=== PATIENT | male | born 1960 | race Caucasian/White ===

== ENCOUNTER 2021-05-26 04:20 | Observation (INO) ==
[2021-05-26 05:29] LABS: Basophils # 0.1 K/mcL (0.0-0.2); Basophils % 0.5 %; Eosinophils # 0.2 K/mcL (0.0-0.6); Eosinophils % 1.8 %; Hematocrit 40.5 % (37.5-50.1); Hemoglobin 13.7 g/dL (12.9-16.9); Immature Granulocytes % 0.4 % (0-4); Lymphocytes # 2.1 K/mcL (0.6-4.6); Lymphocytes % 21.3 %; Mean Corpuscular HGB Conc 33.8 g/dL (31.6-35.5); Mean Corpuscular Hemoglobin 29.4 pg (28.0-33.3); Mean Corpuscular Volume 86.9 fL (83.0-100.0); Mean Platelet Volume 10.1 fL (9.4-12.4); Monocytes # 0.8 K/mcL (0.0-1.3); Monocytes % 8.5 %; Neutrophils # 6.6 K/mcL (1.6-8.9); Platelet Count 190 K/mcL (140-400); Red Blood Count 4.66 M/mcL (4.19-5.50); Red Cell Distribution Width 12.2 % (11.5-14.5); Segmented Neutrophils % 67.5 %; White Blood Count 9.8 K/mcL (4.3-11.1)
[2021-05-26 05:35] LABS: VBG HCO3 26 mEq/L (21-27); VBG PCO2 43 mmHg (41-51); VBG PH 7.39 pH Units (7.32-7.42); VBG PO2 114 mmHg (25-50)
[2021-05-26 05:45] LABS: Bilirubin,Urine Negative (Negative); Blood,Urine Negative (Negative); Clarity,Urine Clear (Clear); Color,Urine Colorless (Yellow); Glucose,Urine (UA) Normal (Normal); Ketones,Urine Negative (Negative); Leukocyte Esterase,Urine Negative (Negative); Nitrite,Urine Negative (Negative); Protein,Urine 50 mg/dL (Neg-Trace); RBC,Urine 0-3 per hpf (0-3); Specific Gravity,Urine 1.015 (1.010-1.025); Squamous Epithelial Cell,Urine Few per hpf (None-Few); Urobilinogen,Urine Normal (Normal); WBC,Urine 0-3 per hpf (0-3)
[2021-05-26 05:47] LABS: BUN/Creatinine Ratio 22 (6-26); Blood Urea Nitrogen 27 mg/dL (8-23); Carbon Dioxide 24 mEq/L (23-29); Chloride 99 mEq/L (98-107); Potassium 3.9 mEq/L (3.5-5.1); Sodium 136 mEq/L (136-145); eGFR For African Americans > 60 (> 60)
[2021-05-26 05:48] LABS: Alanine Aminotransferase 36 Units/L (7-52); Albumin 4.4 g/dL (3.5-5.7); Albumin/Globulin Ratio 1.6 (1.1-2.2); Alkaline Phosphatase 46 Units/L (34-104); Aspartate Amino Transferase 24 Units/L (13-39); Bilirubin,Direct 0.1 mg/dL (0.0-0.2); Bilirubin,Indirect 0.5 mg/dL (0.0-1.0); Bilirubin,Total 0.6 mg/dL (0.3-1.0); Calcium 9.5 mg/dL (8.6-10.3); Ethanol < 10 mg/dL (Less than 10); Globulin 2.7 g/dL (2.4-3.5); Glucose 188 mg/dL (70-105); Magnesium 1.4 mg/dL (1.6-2.6); Osmolality,Calculated 292 (280-300); Total Protein 7.1 g/dL (6.4-8.9); eGFR For Non-African Americans 60 (> 60)
[2021-05-26 06:11] LABS: Amphetamine Screen,Urine Negative ng/mL (Cutoff=1000); Barbiturate Screen,Urine Negative ng/mL (Cutoff=200); Benzodiazepines Screen,Urine Negative ng/mL (Cutoff=200); Cannabinoid Screen,Urine Negative ng/mL (Cutoff = 50); Cocaine Screen,Urine Negative ng/mL (Cutoff= 300); Opiate Screen,Urine Positive ng/mL (Cutoff=300); Phencyclidine Screen,Urine Negative ng/mL (Cutoff=25)
[2021-05-26] MEDS ORDERED: Magnesium Sulfate 1 GM/102 ML PIGGYBACK IVPB ONE (06:21)
[2021-05-26 06:35] LABS: Thyroid Stimulating Hormone 3.307 mcIU/mL (0.340-5.600)
[2021-05-26 07:17] LABS: Troponin I 0.03 ng/mL (< 0.04)
[2021-05-26] MEDS ORDERED: Ondansetron ODT 4 MG TAB.RAPDIS SL PRN (07:59)
[2021-05-26] MEDS ORDERED: Naloxone 0.4 MG/ML INJ IVP PRN (07:59)
[2021-05-26] MEDS ORDERED: *HR* HYDROcodone/Acet 5/325 mg TABLET PO PRN (07:59)
[2021-05-26] MEDS ORDERED: Perflutren Lipid Microsphere 1.3 ML in 0.9 % Sodium Chloride 8.7 ML IVP PRN (08:00)
[2021-05-26] MEDS ORDERED: Dextrose 4 GM Chewable Tablets PO PRN ×2 (08:01)
[2021-05-26] MEDS ORDERED: *HR* Dextrose 50 % in Water (Syg) 50 ML SYRINGE IVP PRN (08:01)
[2021-05-26] MEDS ORDERED: D5% in Water 1,000 ML IVC PRN (08:01)
[2021-05-26 09:52] LABS: Prothrombin Time 11.5 Seconds (9.4-12.1)
[2021-05-26 09:54] LABS: Activated Partial Thrombo Time 28.8 Seconds (26.0-36.0)
[2021-05-26] MEDS: Apixaban 5 MG TABLET PO SCH ×2 (09:56→21:13)
[2021-05-26] MEDS: Magnesium Oxide 400 MG TABLET PO SCH ×2 (09:56→21:12)
[2021-05-26] MEDS: Insulin LISPRO 300 UNITS/3 ML VIAL SUBQ SCH ×3 (11:48→17:51)
[2021-05-26] MEDS: Metoprolol 100 MG TABLET PO SCH (21:13)
[2021-05-27 03:10] VITALS: O2SAT 95
[2021-05-27] MEDS: Magnesium Oxide 400 MG TABLET PO SCH (08:55)
[2021-05-27] MEDS: Metoprolol 100 MG TABLET PO SCH (08:55)
[2021-05-27] MEDS: Apixaban 5 MG TABLET PO SCH (08:55)
[2021-05-27] MEDS: Insulin LISPRO 300 UNITS/3 ML VIAL SUBQ SCH (08:56)
[2021-05-27] MEDS ORDERED: Finasteride 5 MG TABLET PO SCH (09:00)
[2021-05-27] MEDS ORDERED: Cholecalciferol (D-3) 1,000 UNIT (25MCG) TABLET PO SCH (09:00)
[2021-05-27] MEDS ORDERED: hydroCHLOROthiazide 25 MG TABLET PO SCH (09:00)
[2021-05-27] MEDS ORDERED: Aspirin Enteric Coated 81 MG Tablet PO SCH (09:00)
[2021-05-27 10:24] VITALS: BP 148/75; PULSE 59; TEMP 97.7
== END 2021-05-27 11:18 | disposition home or self-care (01) ==
LOC: EMEROOARM 04:20 → 3BNU 04:20 → SUATTDRO 07:38 → 3BNU 09:12
PROVIDERS: ADMIT Internal Medicine; ATTEND Internal Medicine